=== PATIENT | female | born 1985 | race Caucasian/White ===

== ENCOUNTER → 2021-01-13 | Outpatient (CLI) | payer SELFPAY ==
[~2021-01-13] MED LIST: ADVI200C5 PO; PERC5TAB12 PO; PERCOCET PO
== END ==
LOC: M LABSMTC 10:58
PROVIDERS: ATTEND Pediatrics
DX: Z20.822 Contact with and (suspected) exposure to COVID-19 (principal)

== ENCOUNTER → 2023-06-14 | Outpatient (CLI) | payer OTHER | LOC: M PLAIMG 07:02 | PROVIDERS: ATTEND Physician Assistant Surgical | DX: S42.254D Nondisplaced fracture of greater tuberosity of right humerus, subsequent encounter for fracture with routine healing (principal); S46.011D Strain of muscle(s) and tendon(s) of the rotator cuff of right shoulder, subsequent encounter; S43.431D Superior glenoid labrum lesion of right shoulder, subsequent encounter; Y92.89 Other specified places as the place of occurrence of the external cause; Y93.89 Activity, other specified; Y99.8 Other external cause status; X58.XXXA Exposure to other specified factors, initial encounter ==

== ENCOUNTER → 2025-09-16 | Outpatient (REF) | payer OTHER ==
[2025-09-18 14:37] LABS: HPV APTIMA Not Detected (Not Detected)
== END ==
LOC: M SFHCWAGY 16:56
PROVIDERS: ATTEND Advanced Practice Midwife
DX: Z12.4 Encounter for screening for malignant neoplasm of cervix (principal); R87.610 Atypical squamous cells of undetermined significance on cytologic smear of cervix (ASC-US)
CPT/HCPCS: 87624; G0123

== ENCOUNTER → 2025-09-16 | Outpatient (CLI) | payer OTHER | LOC: M WHC 15:09 | PROVIDERS: ATTEND Advanced Practice Midwife | DX: Z12.31 Encounter for screening mammogram for malignant neoplasm of breast (principal); Z53.9 Procedure and treatment not carried out, unspecified reason ==